=== PATIENT | male | born 1965 | race Caucasian/White ===

== ENCOUNTER 2019-01-20 12:13 | Day surgery (SDC) | payer OTHER ==
[~2019-01-20] VITALS: Ht 175.3 cm; Wt 95.3 kg
[~2019-01-20 12:13] MED LIST: CARB200 PO; LISI5 PO; VITAMIN D35000 UNI1 PO
== END 2019-01-20 14:45 | disposition home or self-care (01) ==
LOC: ORSCSDS 12:13
DX: Z12.11 Encounter for screening for malignant neoplasm of colon (principal); D12.2 Benign neoplasm of ascending colon; D12.8 Benign neoplasm of rectum; I10 Essential (primary) hypertension; G40.909 Epilepsy, unspecified, not intractable, without status epilepticus; Z79.899 Other long term (current) drug therapy
CPT/HCPCS: 88305; J2704; J7120